=== PATIENT | female | born 2005 | race Caucasian/White ===

== ENCOUNTER 2025-07-05 08:19 | Emergency (ER) | payer OTHER, SELFPAY ==
[2025-07-05 08:33] VITALS: BP 100/58; PULSE 66; RESP 16; TEMP 36.7; O2SAT 97; BMI 22.8
[2025-07-05 08:49] LABS: Appearance Urine Slightly Cloudy (Clear)
--- NOTE | 2025-07-05 08:54 | ED.GENADULT ---
HPI - General Adult General Chief complaint: Urogenital Problems, Female Stated complaint: possible UTI, lightheaded Time Seen by Provider: 07/05/25 08:54 History of Present Illness HPI narrative: Pt reports she has been feeling urinary urgency but has felt like she has not been able to empty her bladder fully. Pt now having some cramping and feeling lightheaded today. 19-year-old young woman presenting to emergency department with concern of urgency and sensation not being able to empty her bladder completely. She has been having some cramping and maybe a little lightheadedness. Does not have a history of urinary tract infections. No unusual discharge. Does have concern of possible urinary tract infection. No identified risk factors. Related Data Home Medications ?Medication ?Instructions ?Recorded ?Confirmed No Known Home Medications 07/05/25 07/05/25 Allergies Allergy/AdvReac Type Severity Reaction Status Date / Time amoxicillin (From Augmentin) Allergy Mild Hives Verified 07/05/25 08:36 clavulanic acid (From Allergy Mild Hives Verified 07/05/25 08:36 Augmentin) Review of Systems Status of ROS: Reports: 6 or more systems reviewed and unremarkable except as noted in History and below [facility] Social History Smoking Status: Never smoker How often do you have a drink containing alcohol: never How often do you have six or more drinks on one occasion: Never AUDIT-C Alcohol total score: 0 Non-prescribed substance use: denies use Exam Narrative: Exam Narrative: Pleasant. NAD. Skin is warm and dry. Heart in regular rate. Abdomen is soft and minimal discomfort to suprapubic palpation. No reported flank pain. Const: Vital Signs, click to edit/add: Vital Signs - 24 hr 07/05/25 08:33 Temperature 98.1 F Pulse Rate [Pulse Oximeter] 66 Respiratory Rate 16 Blood Pressure [Ri ght Upper Arm] 100/58 L Pulse Oximetry 97 Oxygen Delivery Me thod Room Air Documenting provider has reviewed patient's vital signs: yes Course Vital Signs Vital signs: Initial Vital Signs Temperature 98.1 F 07/05/25 08:33 Temperature Source Temporal Artery Scan 07/05/25 08:33 Pulse Rate 66 07/05/25 08:33 Respiratory Rate 16 07/05/25 08:33 Blood Pressure 100/58 L 07/05/25 08:33 Blood Pressure Mean 72 07/05/25 08:33 Blood Pressure Position Sitting 07/05/25 08:33 Pulse Oximetry 97 07/05/25 08:33 Oxygen Delivery Method Room Air 07/05/25 08:33 Vital Signs Temperature 98.1 F 07/05/25 08:33 Pulse Rate 66 07/05/25 08:33 Respiratory Rate 16 07/05/25 08:33 Blood Pressure 100/58 L 07/05/25 08:33 Pulse Oximetry 97 07/05/25 08:33 Oxygen Delivery Method Room Air 07/05/25 08:33 Temperature 98.1 F 07/05/25 08:33 Pulse Rate 66 07/05/25 08:33 Respiratory Rate 16 07/05/25 08:33 Blood Pressure 100/58 L 07/05/25 08:33 Pulse Oximetry 97 07/05/25 08:33 Oxygen Delivery Method Room Air 07/05/25 08:33 Medical Decision Making MDM Narrative Medical decision making narrative: Certainly might have cystitis. Possibly urinary tension contributing but this has not been historical problem. Probably more sensory incomplete emptying. Symptoms not to the degree I would suspect pyelonephritis. Nor contributed to by constipation. Urinalysis is pending. Review urinalysis is mildly positive. May have been partially treated herself with hydration or immune response. Do not have better explanation for the symptoms she is experiencing and I think it would be prudent to go ahead and treat with antibiotics. See patient discharge plan for further discussion continue to focus on hydration with water. Does appear that you have a urinary tract infection, specifically cystitis. If you begin to experience more painful urination available [id number] is a medication called phenazopyridine (can take up to 200 mg per dose) which can help with that kind of burning. Prescribing a medication called cephalexin, an antibiotic from [facility]. We will be culturing your urine here and call you if a change in treatment needs to be made Lab Data Lab results reviewed: Yes I reviewed the patient's lab results Labs: Lab Results 07/05/25 07/05/25 Range/Units 08:42 08:55 Urine Color Yellow (Yellow) Urine Appearance Slightly Cloudy A (Clear) Urine pH 5.5 (5.0-8.5) Ur Specific [place] 1.025 (1.000-1.030) Urine Protein 1+ A (Negative) Urine Glucose (UA) Negative (Negative) Urine Ketones Negative (Negative) Urine Blood Negative (Negative) Urine Nitrite Positive A (Negative) Urine Bilirubin Negative (Negative) Urine Urobilinogen 0.2 (0.2-1.0) Ur Leukocyte Esterase Trace A (Negative) Urine RBC 0-2 (0-2) Urine WBC 5-10 A (0-5) Ur Squamous Epith Cells Moderate A (None-Few) Urine Bacteria Many A (None) Urine HCG, Qual Negative (Negative) Discharge Plan Discharge Clinical Impression: Cystitis Patient Disposition: Home, Self-Care Condition: Stable Additional Instructions: continue to focus on hydration with water. Does appear that you have a urinary tract infection, specifically cystitis. If you begin to experience more painful urination available [id number] is a medication called phenazopyridine (can take up to 200 mg per dose) which can help with that kind of burning. Prescribing a medication called cephalexin, an antibiotic from [facility]. We will be culturing your urine here and call you if a change in treatment needs to be made Prescriptions: No Action No Known Home Medications Stand Alone Forms: [facility] Info Instructions
[2025-07-05 09:25] LABS: Ur HCG Qualitative* Negative (Negative)
== END 2025-07-05 09:45 | disposition home or self-care (01) ==
LOC: ED 09:41
PROVIDERS: Emergency Provider Family Medicine
DX: N30.90 Cystitis, unspecified without hematuria (principal)
CPT/HCPCS: 81001; 81025; 87086; 99283